=== PATIENT | female | born 1995 | race Two or more races ===

== ENCOUNTER 2023-02-05 22:21 | Emergency (ER) | payer OTHER ==
[~2023-02-05] VITALS: Ht 162.6 cm; Wt 100.0 kg
[2023-02-05 22:39] VITALS: BP 150/90
== END 2023-02-05 23:34 | disposition left against medical advice (07) ==
LOC: EMS 22:23
DX: Z53.21 Procedure and treatment not carried out due to patient leaving prior to being seen by health care provider (principal)
CPT/HCPCS: 99281; Z7502